=== PATIENT | male | born 1965 | race Caucasian/White ===

== ENCOUNTER 2018-07-05 07:56 | Emergency (ER) | payer OTHER, SELFPAY ==
[2018-07-05 07:58] VITALS: BP 141/97; PULSE 81; RESP 18; TEMP 36.3; O2SAT 99; BMI 26.4
--- NOTE | 2018-07-05 08:25 | CT_ITS ---
STUDY: CTA OF THE BRAIN REASON FOR EXAM: Male, 53 years old. Double vision. Diplopia. RADIATION DOSAGE (If Supplied By Facility): CTDIvol = ( 27.29 ) mGy, DLP = ( 1240.20 ) mGycm TECHNIQUE: CT angiography was performed with a multi-detector CT scanner. Data acquisition was obtained from the skull base through the vertex following intravenous administration of Isovue 370 100 IV. MIP images were reconstructed from the axial data set. Post-processing of the angiographic images was performed, with multiplanar reformation and 3D reconstruction. Individualized dose optimization techniques were used for this CT. COMPARISON: None. FINDINGS: Normal bilateral petrous carotid arteries. Normal right cavernous carotid artery with a normal supraclinoid bifurcation. Normal left cavernous carotid artery with a normal supraclinoid bifurcation. Normal right A1 segments of the anterior cerebral artery. Normal left A1 segments of the anterior cerebral artery. Normal intact anterior communicating artery (ACOM). Normal bilateral A2 segments of the anterior cerebral arteries. Normal right M1 and M2 segments of the middle cerebral arteries, with a normal M1 bifurcation. Normal left M1 and M2 segments of the middle cerebral arteries, with a normal M1 bifurcation. Normal right posterior communicating artery (PCOM). Normal left posterior communicating artery (PCOM). Normal bilateral vertebral arteries. Normal basilar artery with a normal basilar bifurcation. The visualized bilateral superior cerebellar (SCA) arteries are normal. Normal bilateral P1, P2 and visualized P3 segments of the posterior cerebral arteries. There is no demonstrated aneurysm of the [place]. There is no demonstrated abnormality of the visualized brain. CT/CTA Head W/WO Contrast IMPRESSION: Normal [place] without a demonstrated aneurysm or hemodynamically significant stenosis. Electronically Signed: Konstantin Cavanaugh, at 10:08 EDT , Service support ,
[2018-07-05 09:22] LABS: Absolute Lymphocyte Count 1.04 X10^3/ul (0.83-4.51); Basophil# 0.04 X10^3/uL; Basophil% 0.9 % (0-1); Eosinophil# 0.06 X10^3/uL; Eosinophils% 1.3 % (0-5); Hematocrit 50.2 % (40-54); Hemoglobin 16.6 g/dl (13.0-16.5); Lymphocyte # 1.04 X10^3/ul (4.0); Lymphocyte % 22.6 % (19-41); Mean Corp Hgb Conc 33.1 g/gl (32-36); Mean Corpuscular Hgb 30.2 pg (27.0-32.0); Mean Corpuscular Volume 91.3 fL (80-94); Mean Platelet Vol. 10.6 fl (6.2-12.0); Monocyte# 0.45 X10^3/uL; Monocyte% 9.8 % (0-10); Neutrophil % 65.2 % (47-70); Platelet Count 232 K/mm3 (150-450); RBC Distribution Width CV 13.7 % (11.6-14.6); RBC Distribution Width SD 45.7 fl (35.1-43.9); White Blood Count 4.6 K/mm3 (4.4-11.0)
[2018-07-05 09:24] LABS: Anion Gap 5 (5-15); BUN 21 mg/dL (7-18); BUN/Creat Ratio 19.4 RATIO (10-20); Calcium,Total 9.1 mg/dL (8.5-10.1); Chloride 107 mmol/L (98-107); Creatinine, Serum 1.08 mg/dL (0.70-1.30); EST Glomerular Filtration Rate 76 mL/min (>60); Est Glom Filt Rate - Afr Amer 92 mL/min (>60); Estimated Creatinine Clearance 84.25 ml/min; Glucose 77 mg/dL (74-106); Potassium 4.3 mmol/L (3.5-5.1); Sodium Level 141 mmol/L (136-145)
[2018-07-05 09:25] LABS: POSITIVE COUNT NO; POSITIVE DIFFERENTIAL NO; POSITIVE MORPHOLOGY NO
--- NOTE | 2018-07-05 11:23 | ED.RN ---
CALLED DOWN TO LAB TO SEE HOW LONG UNTIL ESR WOULD BE BACK. TALKED TO WENDIE WHO SAID HE WOULD CHECK INTO IT.
--- NOTE | 2018-07-05 11:34 | ED.VISSUMM ---
- ER Visit Summary Date of Service: 07/05/18 Chief Complaint: Double vision that started Tuesday History of Present Illness: The patient is a 53 M with no significant past medical history presents with double vision. He states objects are offset one higher than the other and to the side. He denies vertigo. He does complain of mild occipital headache. He denies neck pain. He denies photophobia. Denies trouble speech or swallowing. Denies paresthesia, anesthesia buttocks. He denies fever, chills or night sweats. He denies weight gain or weight loss. There is no family history of autoimmune disorder. There is no family history of brain malignancy or MS. he denies nausea, vomiting or diarrhea. He denies bruising easily. Physical Examination: Vital signs noted. Visual acuity with glasses is 20/20 right and left and both. Pupils are equal round reactive. Extra muscle intact. Sclerae anicteric. Conjunctive is not injected. There is no APD. There is no subconjunctival hemorrhage noted. Funduscopic exam reveals non-distinct optic nerve on the right. There is no AV nicking noted. No obvious hemorrhage is noted. TMs are normal. Cranial 2 through 12 are intact. Trachea is midline. There is no carotid bruit. Neck is supple with no meningeal findings. Insert cardiopulmonary exam patient is alert and oriented ?3. Motor is 5 over 5. Sensory is intact. DTRs are symmetric with no clonus or Babinski sign. Cranial 2 through 12 are intact. Cerebellar testing is normal. Gait was observed and unremarkable. Able to walk on heels and toes. Tandem gait is normal. Romberg with eyes open and closed reveals slight abnormality bilaterally with eyes closed. Proprioception was assessed and is normal. Test Results: CBC and electrode panel unremarkable. CT of the head/CTA of the head reveals no aneurysm or any abnormality. ESR is less than 1 Emergency Department Course and Treatment: With complaint of diplopia and headache will obtain CTA of the head to evaluate for aneurysm. ESR was obtained because of possible concerns for arteritis specifically temporal. Treatment Plan: Outpatient follow-up with Dr. Rosales who is on for ophthalmology since patient does not have an certified personal trainer. Disposition: Discharged home in stable condition with spouse Impression: Diplopia unknown etiology This note was generated with Trigg[employer] software. It may contain incorrect words, spelling, and punctuation that were not noted in review of the chart prior to signing ED Disposition - Plan for ED Patient: Disposition: Home or Assisted Living Instructions: ED Double Vision Referrals: Moy Cheema MD [Primary Care Provider] - Julia Rosales MD [STAFF PHYSICIAN] - 2 Days
--- NOTE | 2018-07-05 11:38 | ED.DCSUM_ITS ---
- ER Visit Summary Date of Service: 07/05/18 Chief Complaint: Double vision that started Tuesday History of Present Illness: The patient is a 53 M with no significant past medical history presents with double vision. He states objects are offset one higher than the other and to the side. He denies vertigo. He does complain of mild occipital headache. He denies neck pain. He denies photophobia. Denies trouble speech or swallowing. Denies paresthesia, anesthesia buttocks. He denies fever, chills or night sweats. He denies weight gain or weight loss. There is no family history of autoimmune disorder. There is no family history of brain malignancy or MS. he denies nausea, vomiting or diarrhea. He denies bruising easily. Physical Examination: Vital signs noted. Visual acuity with glasses is 20/20 right and left and both. Pupils are equal round reactive. Extra muscle intact. Sclerae anicteric. Conjunctive is not injected. There is no APD. There is no subconjunctival hemorrhage noted. Funduscopic exam reveals non-distinct optic nerve on the right. There is no AV nicking noted. No obvious hemorrhage is noted. TMs are normal. Cranial 2 through 12 are intact. Trachea is midline. There is no carotid bruit. Neck is supple with no meningeal findings. Insert cardiopulmonary exam patient is alert and oriented ?3. Motor is 5 over 5. Sensory is intact. DTRs are symmetric with no clonus or Babinski sign. Cranial 2 through 12 are intact. Cerebellar testing is normal. Gait was observed and unremarkable. Able to walk on heels and toes. Tandem gait is normal. Romberg with eyes open and closed reveals slight abnormality bilaterally with eyes magalys sed. Proprioception was assessed and is normal. Test Results: CBC and electrode panel unremarkable. CT of the head/CTA of the head reveals no aneurysm or any abnormality. ESR is less than 1 Emergency Department Course and Treatment: With complaint of diplopia and headache will obtain CTA of the head to evaluate for aneurysm. ESR was obtained because of possible concerns for arteritis specifically temporal. Treatment Plan: Outpatient follow-up with Dr. Rosales who is on for ophthalmology since patient does not have an casino runner. Disposition: Discharged home in stable condition with spouse Impression: Diplopia unknown etiology This note was generated with [employer] software. It may contain incorrect words, spelling, and punctuation that were not noted in review of the chart prior to signing ED Disposition - Plan for ED Patient: Disposition: Home or Assisted Living Instructions: ED Double Vision Referrals: Moy Cheema MD [Primary Care Provider] - Julia Rosales MD [STAFF PHYSICIAN] - 2 Days
[2018-07-05 11:44] LABS: Erythrocyte Sedimentation Rate < 1 mm/hr (0-20)
[2018-07-05 12:08] VITALS: BP 138/84; PULSE 70; RESP 16; O2SAT 99
== END 2018-07-05 12:09 | disposition home or self-care (01) ==
PROVIDERS: Emergency Provider Emergency Medicine; Family Provider Family Medicine; PCP Family Medicine
DX: H53.2 Diplopia (principal); R51 Headache
CPT/HCPCS: 70496; 80048; 85025; 85652; 99284; Q9967; A4216

== ENCOUNTER → 2018-07-06 10:37 | Outpatient (CLI) | payer OTHER, SELFPAY ==
[2018-07-05 07:58] VITALS: BMI 26.4
[2018-07-06 12:28] LABS: T3 Total - Triiodothyronine 1.11 ng/mL (0.6-1.81)
[2018-07-06 12:29] LABS: T4 Free Direct 1.06 ng/dL (0.76-1.46); Thyroid Stim Hormone (TSH) 0.88 uIU/mL (0.358-3.74)
[2018-07-11 11:24] LABS: Acetylcholine Receptor Binding < 0.03 nmol/L (0.00-0.24); Thyroid Stim Immunoglob 0.16 IU/L (0.00-0.55)
== END ==
PROVIDERS: Family Provider Family Medicine; PCP Family Medicine; Referring Provider Ophthalmology; Visit Provider Ophthalmology
DX: H53.2 Diplopia (principal); H50.22 Vertical strabismus, left eye; H50.012 Monocular esotropia, left eye
CPT/HCPCS: 36415; 84238; 84439; 84443; 84445; 84480

== ENCOUNTER → 2018-07-21 16:00 | Outpatient (CLI) | payer OTHER, SELFPAY ==
[2018-07-05 07:58] VITALS: BMI 26.4
--- NOTE | 2018-07-21 16:20 | MRI_ITS ---
STUDY: MRI BRAIN WITH AND WITHOUT CONTRAST REASON FOR EXAM: Male, 53 years old. Binocular diplopia x 1 week. TECHNIQUE: Standardized multiplanar fat and water weighted pulse sequences were obtained. 18 IV Dotarem was administered for the contrast portion of the examination. Thin multiplanar sections through the orbits with and without contrast were also performed. COMPARISON: None. FINDINGS: Normal size of the ventricles and extra-axial spaces for the patient's age. Normal white matter tracts of the supratentorial brain. Normal bilateral basal ganglia. Normal thalami. There is no extra-axial fluid accumulation. Normal flow voids within the major intracranial circulation suggesting patency by spin echo criteria. Normal venous enhancement. There is no enhancing intra-axial or extra-axial abnormality. Normal sella turcica, pituitary gland, infundibular stalk, optic chiasm and hypothalamus. Normal tectal plate and pineal gland. Normal midbrain, shea and medulla. Normal cerebellum. Normal basal cisterns. Normal bilateral temporal bones. Normal bilateral internal auditory canals. No demonstrated orbital abnormality, within the constraints of a routine brain study. Normal visualized paranasal sinuses. Normal calvarium and skull base. Normal visualized soft tissue structures. Normal visualized upper cervical spine. IMPRESSION: Normal unenhanced and enhanced MRI of the brain and orbits with and without contrast. Electronically Signed: Lio Ellison MD at 11:13 EDT , Service support , STUDY: MRI ORBITS WITH AND WITHOUT CONTRAST REASON FOR EXAM: Male, 53 years old. Binocular diplopia x 1 week. TECHNIQUE: Standardized fat and water weighted pulse sequences were obtained in all 3 orthogonal planes, pre-and post contrast administration. 18 IV Dotarem was administered for the contrast portion of the examination. COMPARISON: None. FINDINGS: Normal bilateral globes. Normal bilateral optic nerve sheath complexes and optic nerves. Normal bilateral intraconal and extraconal spaces. Normal bilateral extraocular muscles. Normal optic chiasm and post-chiasmatic tracts. Normal sella turcica, pituitary gland, infundibular stalk, and hypothalamus. Normal bilateral cavernous sinuses. Normal tectal plate and pineal gland. Normal flow voids within the major intracranial circulation suggesting patency by spin echo criteria. Normal size of the ventricles and extra-axial spaces for the patient's age. Normal white matter tracts of the supratentorial brain. Normal bilateral basal ganglia. Normal thalami. There is no extra-axial fluid accumulation. Normal midbrain, shea and medulla. Normal cerebellum. Normal basal cisterns. MRI/Brain W/WO Contrast IMPRESSION: Normal enhanced and unenhanced MRI of the orbits. Electronically Signed: Lio Ellison MD at 11:14 EDT , Service support ,
== END ==
PROVIDERS: Family Provider Family Medicine; PCP Family Medicine; Referring Provider Ophthalmology; Visit Provider Ophthalmology
DX: H53.2 Diplopia (principal)
CPT/HCPCS: 70553; A9575

== ENCOUNTER → 2019-10-01 08:49 | Outpatient (CLI) | payer OTHER, SELFPAY ==
--- NOTE | 2019-10-01 08:53 | RAD_ITS ---
STUDY: X-RAY - LEFT FOOT CLINICAL: Male, 54 years old. Left foot pain on top of metatarsals, fx of 2nd mt about 10 years ago TECHNIQUE: 3 view(s) of the foot. COMPARISON: None. FINDINGS: There is a tiny plantar calcaneal spur. Normal visualized subtalar, talonavicular, calcaneocuboid, tarsal and tarsometatarsal articulations. Normal metatarsi. There is degenerative arthrosis of the metatarsophalangeal joint of the hallux . Normal tibial and fibular sesamoid bones. Normal interphalangeal joint of the great toe. Normal phalanges of the great toe. Normal second through fifth metatarsophalangeal joints. Normal interphalangeal joints and phalanges of the lesser toes. The soft tissue structures are unremarkable. RAD/Foot min 3 Views IMPRESSION: Joint space narrowing at the first metatarsal phalangeal joint Electronically Signed: Konstantin Cavanaugh, at 15:46 EDT , Service support ,
== END ==
PROVIDERS: PCP Family Medicine; Referring Provider Family Medicine; Visit Provider Family Medicine
DX: M79.672 Pain in left foot (principal)
CPT/HCPCS: 73630

== ENCOUNTER → 2024-01-31 | Outpatient (CLI) | payer OTHER, SELFPAY ==
--- NOTE | 2024-01-31 09:12 | RAD_ITS ---
STUDY: X-RAY - CERVICAL SPINE REASON FOR EXAM: Male, 58 years old. R and gt; L arm paresthesia, R shoulder pain 1 yr, known psoriatic arth TECHNIQUE: 6 view(s) of the cervical spine were obtained. COMPARISON: None FINDINGS: Normal anterior atlantoaxial articulation. Normal odontoid process. Normal cervical lordosis. Normal vertebral bodies and endplates. Normal disc space heights. Normal visualized intervertebral neuroforamina. The soft tissue structures are unremarkable. RAD/Cerv Spine 4 or 5 Views IMPRESSION: Normal x-ray examination of the visualized cervical spine. Electronically Signed: Abelardo Braswell MD at 17:16 EDT ,
== END | disposition home or self-care (01) ==
LOC: MTRAD 09:12
PROVIDERS: PCP Family Medicine; Referring Provider Family Medicine; Visit Provider Family Medicine
DX: R20.2 Paresthesia of skin (principal)
CPT/HCPCS: 72050

== ENCOUNTER → 2024-02-01 | Outpatient (CLI) | payer OTHER, SELFPAY ==
[2024-02-01 12:35] LABS: Absolute Lymphocyte Count 1.09 X10^3/uL (0.83-4.51); Absolute Neutrophil Count 2.8 X10^3/uL (2.0-7.7); Basophil# 0.05 X10^3/uL; Basophil% 1.1 % (0-1); Eosinophils% 2.3 % (0-5); Hematocrit 46.1 % (40-54); Hemoglobin 15.4 g/dL (13.0-16.5); Lymphocyte # 1.09 X10^3/ul (0.83-4.51); Lymphocyte % 24.7 % (19-41); Mean Corp Hgb Conc 33.4 g/dL (32-36); Mean Corpuscular Volume 89.9 fL (80-94); Mean Platelet Vol. 11.4 fl (6.2-12.0); Monocyte# 0.42 X10^3/uL; Monocyte% 9.5 % (0-10); NRBC Flagged by Analyzer 0 % (0-5); Neutrophil # 2.75 X10^3/uL (2.7-7.7); Neutrophil % 62.2 % (47-70); Platelet Count 217 K/mm3 (150-450); RBC Distribution Width CV 13.5 % (11.6-14.6); RBC Distribution Width SD 44.7 fl (35.1-43.9); Red Blood Count 5.13 M/mm3 (4.6-6.2); White Blood Count 4.4 K/mm3 (4.4-11.0)
[2024-02-01 12:49] LABS: Vitamin D,25 Hydroxy 48.1 ng/mL
[2024-02-01 12:55] LABS: ALB/GLOB Ratio 1.2 RATIO (0.9-2.4); AST(SGOT) 32 U/L (15-37); Alanine Aminotransfer ALT/SGPT 47 U/L (16-61); Albumin, Serum 4.1 g/dL (3.2-5.0); Alkaline Phosphatase 120 U/L (45-117); Anion Gap 4 (5-15); BUN 13 mg/dL (7-18); BUN/Creat Ratio 13.6 RATIO (10-20); CRP < 2.90 mg/L (0.0-3.0); Calcium,Total 9.3 mg/dL (8.5-10.1); Chloride 107 mmol/L (98-107); Cholesterol 130 mg/dL (200); Creatinine, Serum 0.96 mg/dL (0.70-1.30); EST Glomerular Filtration Rate 86 mL/min (>60); Est Glom Filt Rate - Afr Amer 104 mL/min (>60); Globulin 3.4 g/dL (2.2-4.2); Glucose 98 mg/dL (74-106); High Density Lipoprotein 28 mg/dL; PSA,Total - Annual Screen 2.28 ng/mL (0.00-4.00); Potassium 4.2 mmol/L (3.5-5.1); Protein, Total 7.5 g/dL (6.4-8.2); Sodium Level 140 mmol/L (136-145); Triglycerides 190 mg/dL; Very Low Density Lipoprotein 38 mg/dL (5-40)
[2024-02-02 11:10] LABS: ANTINUCLEAR ANTIBODIES DIRECT Negative (Negative)
[2024-02-02 13:09] LABS: PROEL- A/G Ratio 1.2 (0.7-1.7); PROEL- Albumin 3.8 g/dL (2.9-4.4); PROEL- Alpha-1 Globulin 0.2 g/dL (0.0-0.4); PROEL- Alpha-2 Globulin 0.8 g/dL (0.4-1.0); PROEL- Gamma Globulin 1.1 g/dL (0.4-1.8); PROEL- Globulin, Total 3.1 g/dL (2.2-3.9); PROEL- TOTAL PROTEIN 6.9 g/dL (6.0-8.5); PROEL-M-Spike Not Observed g/dL (Not Observed)
== END | disposition home or self-care (01) ==
LOC: MFPLAB 10:03
PROVIDERS: PCP Family Medicine; Visit Provider Family Medicine
DX: E83.52 Hypercalcemia (principal); L40.50 Arthropathic psoriasis, unspecified; R20.2 Paresthesia of skin; E78.1 Pure hyperglyceridemia; Z12.5 Encounter for screening for malignant neoplasm of prostate
CPT/HCPCS: 36415; 80053; 80061; 82306; 83970; 84153; 84165; 84443; 85025; 86038; 86140; G0103

== ENCOUNTER 2024-08-02 06:46 | Emergency (ER) | payer OTHER, SELFPAY ==
[2024-08-02 06:46] VITALS: BP 172/81; PULSE 94; RESP 19; TEMP 36.9; O2SAT 90; BMI 27.1
--- NOTE | 2024-08-02 07:05 | RAD_ITS ---
PROCEDURE: FOREARM 2 VIEWS 08/02/2024 REASON FOR EXAM: TRAUMA FELL OFF LADDER LAST NIGHT. TECHNIQUE: 2 view(s) of the left forearm COMPARISON: No relevant prior. FINDINGS: Bones: No fractures or other osseous abnormalities. Joints: No dislocations or subluxations. Soft tissues: Unremarkable. Other: Unremarkable. RAD/Forearm 2 Views IMPRESSION: No osseous abnormalities involving the left forearm. Reading Location: [place] [address]
--- NOTE | 2024-08-02 07:05 | RAD_ITS ---
EXAM: LEFT WRIST, THREE VIEWS CLINICAL HISTORY: TRAUMA. COMPARISON: NO RELEVANT PRIOR. TECHNIQUE: AP, LATERAL, AND OBLIQUE VIEWS. FINDINGS: No fractures, dislocations, or subluxations. No other osseous abnormalities. Soft tissues are unremarkable. RAD/Wrist min 3 Views IMPRESSION: No acute osseous abnormalities. Reading Location: [place] [id number]
--- NOTE | 2024-08-02 07:06 | CT_ITS ---
EXAM: CT Head Without Intravenous Contrast CLINICAL INDICATION: TRAUMA TECHNIQUE: Axial computed tomography images of the head/brain without intravenous contrast. This CT exam was performed using one or more of the following dose reduction techniques: automated exposure control, adjustment of the mA and/or kV according to patient size, and/or use of iterative reconstruction technique. COMPARISON: No relevant prior studies available. FINDINGS: BRAIN AND EXTRA-AXIAL SPACES: Unremarkable. No hemorrhage. No significant white matter disease. No edema. No ventriculomegaly. BONES/JOINTS: Unremarkable. No acute fracture. SOFT TISSUES: Unremarkable. SINUSES: Unremarkable as visualized. No acute sinusitis. MASTOID AIR CELLS: Unremarkable as visualized. No mastoid effusion. CT/Brain/Head without Contrast IMPRESSION: No acute intracranial hemorrhage, midline shift or mass effect. Reading [facility]
--- NOTE | 2024-08-02 07:06 | CT_ITS ---
EXAM: CT Cervical Spine Without Intravenous Contrast CLINICAL INDICATION: TRAUMA TECHNIQUE: Axial computed tomography images of the cervical spine without intravenous contrast. This CT exam was performed using one or more of the following dose reduction techniques: automated exposure control, adjustment of the mA and/or kV according to patient size, and/or use of iterative reconstruction technique. COMPARISON: No relevant prior studies available. FINDINGS: VERTEBRAE: Unremarkable. No acute fracture. DISCS/SPINAL CANAL/NEURAL FORAMINA: No acute findings. No significant spinal canal stenosis. SOFT TISSUES: Unremarkable. CT/Spine Cervical without Contras IMPRESSION: No acute fracture. Reading [facility]
--- NOTE | 2024-08-02 07:06 | CT_ITS ---
EXAM: CT Chest, Abdomen and Pelvis With Intravenous Contrast CLINICAL INDICATION: TRAUMA, FALL OFF LADDER TECHNIQUE: Axial computed tomography images of the chest, abdomen and pelvis with intravenous contrast. This CT exam was performed using one or more of the following dose reduction techniques: automated exposure control, adjustment of the mA and/or kV according to patient size, and/or use of iterative reconstruction technique. COMPARISON: No relevant prior studies available. FINDINGS: CHEST: LUNGS AND PLEURAL SPACES: Unremarkable. No mass. No consolidation. No significant effusion. No pneumothorax. HEART: Unremarkable. No cardiomegaly. No significant pericardial effusion. No significant coronary artery calcifications. MEDIASTINUM: A few prominent mediastinal lymph nodes measuring up to 6 mm. ABDOMEN: LIVER: Hepatomegaly with fatty infiltration. Hepatic cysts. GALLBLADDER AND BILE DUCTS: Unremarkable. No calcified stones. No ductal dilation. PANCREAS: Unremarkable. No ductal dilation. No mass. SPLEEN: Unremarkable. No splenomegaly. ADRENALS: Unremarkable. No mass. KIDNEYS AND URETERS: Punctate right nephrolithiasis without hydronephrosis. Right renal cysts. No solid mass. STOMACH AND BOWEL: Fecal retention in the colon consistent with constipation. No obstruction. No mucosal thickening. PELVIS: APPENDIX: No findings to suggest acute appendicitis. BLADDER: Unremarkable. No mass. REPRODUCTIVE: Unremarkable as visualized. CHEST, ABDOMEN and PELVIS: INTRAPERITONEAL SPACE: Unremarkable. No significant fluid collection. No free air. BONES/JOINTS: Unremarkable. No acute fracture. No dislocation. SOFT TISSUES: Umbilical hernia containing fat. VASCULATURE: Unremarkable. No aortic aneurysm. LYMPH NODES: See above. CT/CT Chest, Abd, Pel w/Contrast IMPRESSION: 1. No CT evidence of thoracic, abdominal or pelvic visceral injury. 2. Hepatomegaly with fatty infiltration. 3. Fecal retention in the colon consistent with constipation. 4. Umbilical hernia containing fat. 5. Punctate right nephrolithiasis without hydronephrosis. Reading Location[facility]
--- NOTE | 2024-08-02 07:07 | EKG12_ITS ---
Test Reason : FALL Blood Pressure : */* mmHG Vent. Rate : 74 BPM Atrial Rate : 74 BPM P-R Int : 140 ms QRS Dur : 92 ms QT Int : 328 ms P-R-T Axes : 77 43 23 degrees QTcB Int : 364 ms Normal sinus rhythm Normal ECG Confirmed by Mansoor Monsivais ([id number]), brands editor MACIE GREER ([id number]) on 08/06/2024 6:36:35 AM Referred By: Confirmed By: Mansoor Monsivais
--- NOTE | 2024-08-02 07:17 | ED.VIS.FALL ---
HPI HPI - Fall History of Present Illness Chief Complaint: Fall Narrative Narrative: Chief complaint and HPI: Fall. 59-year-old male with no significant past medical history presents for evaluation after a fall. Patient states approximately at 1700 he fell backwards off of a ladder in his garage. He states it was approximately 7 feet high. He states he landed on his back and his left side. He states that he hit some lumber as well as the car on the way down. Patient states that he has been taking oral tramadol at home with some relief. He denies LOC. Not on blood thinners. Denies headache, vision changes, lightheadedness, neck pain, facial pain, chest pain, shortness of breath, nausea, vomiting, hematuria, dysuria. Patient endorses pain in the left chest and thoracic/lumbar back. Endorses pain in the left forearm but otherwise no pain in the left upper extremity. Review of systems: See HPI Medications: As listed on the chart Allergies: As listed on the chart PFSH: Per chart Vital signs: As listed on the chart. Reviewed. Physical exam: Gen: A&O x3, NAD Head: Normocephalic, atraumatic Eyes: No sclera icterus, conjunctiva clear, PERRL, EOMI ENT: TMs clear BL, moist mucous membranes, no swelling/lacerations/blood in the mouth or the nares, no nasal septal hematoma, no facial tenderness, face overall atraumatic Neck: Trachea midline, No JVD, Nontender, full range of motion CV: RRR, no murmurs, tender to palpation in the left anterior chest-no crepitus or ecchymosis Resp: Lungs CTA BL, no w/r/c GI: Abd soft, non-distended, mild tenderness to palpation in the left upper quadrant- no ecchymosis, no r/r/g Musc: Full ROM, no deformity, thoracic and lumbar spine tender to palpation diffusely-more at the bilateral paraspinal musculature, no bony step-offs, tender to palpation at the proximal left forearm without deformity or ecchymosis, mild pain with movement of the left wrist-nontender to palpation, no tenderness or pain with movement/palpation of the fingers/hand/upper arm/shoulder on the left, elbow nontender to palpation with full range of motion, full range of motion and nontender for the rest of the extremities Skin: Warm, dry, intact Neuro: Alert, oriented, grossly intact, sensation intact, GCS 15 Psych: Cooperative, appropriate mood and affect PFSH PFSH Home Medications ?Medication ?Instructions ?Recorded ?Last Taken ?Type hydroxyzine HCl 10 mg tablet 10 mg PO QHS 07/05/18 Unknown History cyclobenzaprine 5 mg tablet 5 mg PO TID PRN muscle spasm 3 08/02/24 Unknown Rx days #9 tabs Allergy/AdvReac Type Severity Reaction Status Date / Time No Known Allergies Allergy Verified 08/02/24 06:46 Surgical History (Updated 08/02/24 @ 06:48 by Shelby Brown) Hx of lymph node excision Social History Smoking Status: Never smoker EXAM Physical Exam Const Vital Signs: 08/02/24 06:46 08/02/24 06:46 08/02/24 09:06 Temperature 98.5 F Temperature Source Oral Pulse Rate 94 68 Respiratory Rate 19 H 18 Respiratory Effort Normal Non-Labored Respiratory Depth Normal Respiratory Pattern Normal Blood Pressure 172/81 H 124/93 H Blood Pressure Mean 111 103 Pulse Ox 90 98 Oxygen Delivery Method Room Air Room Air MDM MDM MDM Narrative Medical decision making narrative: 59-year-old male with no significant past medical history presents for evaluation after a fall. Patient states approximately at 1700 he fell backwards off of a ladder in his garage. Fell approximately 7 feet. Hit his head but no LOC. Not on blood thinners. See HPI and physical exam. Differential diagnosis includes but is not limited to fracture, contusion, myofascial spasm, sprain, intracranial bleed, intra-abdominal trauma. NS bolus, morphine, Zofran ordered for symptoms. Trauma labs ordered with imaging. CBC without leukocytosis or anemia. CMP relatively unremarkable. Troponin unremarkable. Lipase unremarkable. X-rays of the left forearm and wrist were personally reviewed and interpreted by me, ED physician. No fracture or dislocation. Radiology in agreement. CT brain, cervical spine, chest, abdomen, pelvis negative for any acute traumatic injury. Patient does have hepatomegaly with fatty infiltration. Fecal retention in the colon consistent with constipation. Umbilical hernia containing fat. Punctate right nephrolithiasis without hydronephrosis. On reexamination, patient's pain is controlled. Patient and are updated of all the results and the findings. Patient will be discharged home. Follow-up with PCP. Given work note. Given education on Tylenol, ibuprofen, muscle relaxers. Return precautions explained. EKG: Interpreted by me/EM physician: EKG shows normal sinus rhythm without any acute ischemic changes. Heart rate 74. There is artifact on the EKG Impression: 1. Fall from height/ladder, 7 feet 2. Back contusion 3. Left chest contusion 4. Left forearm contusion Lab Data Labs: Laboratory Results - last 24 hr 08/02/24 07:18 WBC 8.4 RBC 5.09 Hgb 15.5 Hct 45.0 MCV 88.4 MCH 30.5 MCHC 34.4 RDW Std Deviation 43.8 RDW Coeff of Hank 13.4 Plt Count 215 MPV 10.7 Immature Gran % (Auto) 0.200 Neut % (Auto) 78.8 H Lymph % (Auto) 11.9 L Leslie % (Auto) 7.7 Eos % (Auto) 0.8 Baso % (Auto) 0.6 Absolute Neuts (auto) 6.6 Absolute Lymphs (auto) 0.99 Nucleated RBC % 0 Sodium 138 Potassium 4.3 Chloride 103 Carbon Dioxide 25.9 Anion Gap 9 BUN 19 Creatinine 1.01 Estim Creat Clear Calc 83.87 Est GFR (MDRD) Non-Af 86 BUN/Creatinine Ratio 18.8 Glucose 100 H Calcium 9.4 Total Bilirubin 0.65 AST 39 H ALT 26 Alkaline Phosphatase 119 Troponin T High Sens 10 Total Protein 7.2 Albumin 4.3 Globulin 2.9 Albumin/Globulin Ratio 1.5 Lipase 28 Radiography Diagnostic Testing: Clinical Impression(s) from Imaging Studies Forearm X-Ray 08/02/24 07:05 IMPRESSION: No osseous abnormalities involving the left forearm. Reading Location: [facility] Wrist X-Ray 08/02/24 07:05 IMPRESSION: No acute osseous abnormalities. Reading Location: [facility] 08/02/24 07:06 IMPRESSION: No acute intracranial hemorrhage, midline shift or mass effect. Reading Location: [facility] Cervical Spine CT 08/02/24 07:06 IMPRESSION: No acute fracture. Reading Location: [facility] Chest/Abdomen/Pelvis CT 08/02/24 07:06 IMPRESSION: 1. No CT evidence of thoracic, abdominal or pelvic visceral injury. 2. Hepatomegaly with fatty infiltration. 3. Fecal retention in the colon consistent with constipation. 4. Umbilical hernia containing fat. 5. Punctate right nephrolithiasis without hydronephrosis. Reading Location: [facility] Discharge Plan Triage Chief Complaint: Fall Other Complaint: Trauma ED Provider: Tim Doran Dx/Rx/DC Orders Clinical Impression: Back contusion, Fall from height of greater than 3 feet, Contusion of forearm, left, Contusion of left chest wall Instructions: Bruises (Contusions), ED Back Sprain/Strain Prescriptions: New cyclobenzaprine 5 mg tablet 5 mg PO TID PRN (Reason: muscle spasm) 3 Days Qty: 9 0RF No Action hydroxyzine HCl 10 MG tablet 10 mg PO QHS Stand Alone Forms: ED Work / School Excuse Primary Care Provider: Moy Cheema Referrals: Moy Cheema MD [Primary Care Provider] - 3-5 Days Activity Restrictions/Additional Instructions: Tylenol and ibuprofen as needed for pain. No ibuprofen for 8 hours as you received Toradol. Muscle relaxers as needed. Muscle relaxers can cause lightheadedness, falls, dizziness. No driving or operating heavy machinery. Follow-up with primary care physician. Return back to the ED if symptoms change or worsen. Print Language: Wallisian Disposition Disposition: Home, Self Care
[2024-08-02 07:30] LABS: Absolute Lymphocyte Count 0.99 X10^3/uL (0.83-4.51); Absolute Neutrophil Count 6.6 X10^3/uL (2.0-7.7); Basophil# 0.05 X10^3/uL; Basophil% 0.6 % (0-1); Eosinophil# 0.07 X10^3/uL; Eosinophils% 0.8 % (0-5); Hemoglobin 15.5 g/dL (13.0-16.5); Lymphocyte # 0.99 X10^3/ul (0.83-4.51); Lymphocyte % 11.9 % (19-41); Mean Corp Hgb Conc 34.4 g/dL (32-36); Mean Corpuscular Hgb 30.5 pg (27.0-32.0); Mean Corpuscular Volume 88.4 fL (80-94); Mean Platelet Vol. 10.7 fl (6.2-12.0); Monocyte# 0.64 X10^3/uL; Monocyte% 7.7 % (0-10); NRBC Flagged by Analyzer 0 % (0-5); Neutrophil # 6.58 X10^3/uL (2.7-7.7); Neutrophil % 78.8 % (47-70); Platelet Count 215 K/mm3 (150-450); RBC Distribution Width CV 13.4 % (11.6-14.6); RBC Distribution Width SD 43.8 fl (35.1-43.9); Red Blood Count 5.09 M/mm3 (4.6-6.2); White Blood Count 8.4 K/mm3 (4.4-11.0)
[2024-08-02] MEDS: 0.9% Normal Saline (1000mL) 1,000 ML 999 ML IV (07:31)
[2024-08-02] MEDS: Ondansetron 4 MG/2 ML Vial IV (07:31)
[2024-08-02] MEDS: Morphine 4 MG/ML Syringe IV (07:31)
[2024-08-02 07:45] LABS: ALB/GLOB Ratio 1.5 RATIO (0.9-2.4); AST(SGOT) 39 U/L (<=37); Alanine Aminotransfer ALT/SGPT 26 U/L (<=46); Albumin, Serum 4.3 g/dL (3.5-5.0); Alkaline Phosphatase 119 U/L (40-129); Anion Gap 9 (5-15); BUN 19 mg/dL (4-19); BUN/Creat Ratio 18.8 RATIO (10-20); Calcium,Total 9.4 mg/dL (7.6-11.0); Carbon Dioxide 25.9 mmol/L (21.0-32.0); Chloride 103 mmol/L (98-108); Creatinine, Serum 1.01 mg/dL (0.70-1.20); EST Glomerular Filtration Rate 86 (>60); Estimated Creatinine Clearance 83.87 ml/min (50-250); Globulin 2.9 g/dL (2.2-4.2); Glucose 100 mg/dL (70-99); Lipase 28 U/L (13-75); Potassium 4.3 mmol/L (3.3-5.1); Protein, Total 7.2 g/dL (5.9-8.4); Sodium Level 138 mmol/L (133-145); Total Bilirubin 0.65 mg/dL (0.00-1.30); Troponin T High Sensitivity 10 ng/L (<=22)
[2024-08-02] MEDS: Lorazepam 2 MG/ML WCH Syringe 0.5 MG IV (07:46)
[2024-08-02 09:06] VITALS: BP 124/93; PULSE 68; RESP 18; O2SAT 98
== END 2024-08-02 09:39 | disposition home or self-care (01) ==
PROVIDERS: Emergency Provider Surgery; PCP Family Medicine; Visit Provider Surgery
DX: S20.229A Contusion of unspecified back wall of thorax, initial encounter (principal); S50.12XA Contusion of left forearm, initial encounter; S20.212A Contusion of left front wall of thorax, initial encounter; W11.XXXA Fall on and from ladder, initial encounter
CPT/HCPCS: 70450; 71260; 72125; 73090; 73110; 74177; 80053; 83690; 84484; 85025; 93005; 96361; 96374; 96375; 96376; 99284; Q9967; A4216; J2405

== ENCOUNTER → 2025-03-06 | Outpatient (CLI) | payer OTHER, SELFPAY ==
[2025-03-06 12:24] LABS: Hematocrit 43.8 % (40-54); Hemoglobin 15.2 g/dL (13.0-16.5); Immature Granulocytes Count 0.000 X10^3/uL (0.0-0.0); Mean Corp Hgb Conc 34.7 g/dL (32-36); Mean Corpuscular Volume 88.7 fL (80-94); Mean Platelet Vol. 11.1 fl (6.2-12.0); NRBC Flagged by Analyzer 0 % (0-5); Platelet Count 227 K/mm3 (150-450); RBC Distribution Width CV 14.1 % (11.6-14.6); RBC Distribution Width SD 45.2 fl (35.1-43.9); Red Blood Count 4.94 M/mm3 (4.6-6.2); White Blood Count 3.9 K/mm3 (4.4-11.0)
[2025-03-06 12:58] LABS: AST(SGOT) 32 U/L (<=37); Alanine Aminotransfer ALT/SGPT 28 U/L (<=46); Albumin, Serum 4.3 g/dL (3.4-4.8); Alkaline Phosphatase 100 U/L (40-129); Anion Gap 8 (5-15); BUN 18 mg/dL (4-19); BUN/Creat Ratio 19.5 RATIO (10-20); Calcium,Total 10.0 mg/dL (7.6-11.0); Carbon Dioxide 28.5 mmol/L (21.0-32.0); Chloride 104 mmol/L (98-108); Globulin 2.6 g/dL (2.2-4.2); Glucose 101 mg/dL (70-99); Potassium 4.8 mmol/L (3.3-5.1)
== END | disposition home or self-care (01) ==
LOC: MFPLAB 09:53
PROVIDERS: PCP Family Medicine; Visit Provider Family Medicine
DX: L40.50 Arthropathic psoriasis, unspecified (principal)
CPT/HCPCS: 36415; 80053; 84443; 85025